=== PATIENT | male | born 1990 | race Caucasian/White ===

== ENCOUNTER 2025-05-13 18:27 | Emergency (ER) | payer OTHER ==
[~2025-05-13] VITALS: Ht 167.6 cm; Wt 73.0 kg
[2025-05-13] MEDS ORDERED: MELATONIN3 M3 PO (18:44)
[2025-05-13] MEDS ORDERED: VITAMIN D350 MCG PO (18:45)
[2025-05-13] MEDS ORDERED: OLANZAPINE5 MG PO (18:46)
[2025-05-13] MEDS ORDERED: TOBRAMYCIN-DEXAM5 ML OPTH (18:47)
[2025-05-13] MEDS ORDERED: NASACORT10.8 ML NAS (18:48)
[2025-05-13] MEDS ORDERED: BACTRIM DS TAB1 EACH PO (20:03)
[2025-05-13] MEDS ORDERED: TRIMETHOPRIM/SULFAMETHOXAZOLE 1 EA HOME.PACK PO ONE (20:15)
[2025-05-13 20:16] VITALS: BP 158/100
== END 2025-05-13 20:18 | disposition home or self-care (01) ==
LOC: ED 18:27
DX: L02.31 Cutaneous abscess of buttock (principal); Z79.899 Other long term (current) drug therapy; Z88.8 Allergy status to other drugs, medicaments and biological substances
CPT/HCPCS: 99283; A9270